=== PATIENT | female | born 1985 | race Caucasian/White ===

== ENCOUNTER 2018-05-21 09:17 | Day surgery (SDC) | payer OTHER, SELFPAY ==
[2018-05-19 11:27] VITALS: BMI 32.2
[2018-05-21] VITALS (9 sets, daily range): BP systolic 107–149; BP diastolic 62–93; PULSE 64–127; RESP 10–20; TEMP 36.3–36.9; O2SAT 92–100; BMI 32.2
--- NOTE | 2018-05-21 | DI.RAD.S_ITS ---
PROCEDURE: XR KNEE RT 1TO2V INDICATIONS: RIGHT ACL REPAIR TECHNIQUE: Single frontal view of the knee were acquired. COMPARISON: None. FINDINGS: Bones: No fractures or dislocations. No suspicious bony lesions. Postsurgical changes consistent with ACL reconstruction. Soft tissues: No joint effusion. No suspicious soft tissue calcifications. IMPRESSION: Limited evaluation after surgery, presumed ACL reconstruction. Single frontal view obtained. Dictated by: Joe Jefferson M.D. on 05/21/2018 at 18:31 Approved by: Joe Jefferson M.D. on 05/21/2018 at 18:32
[2018-05-21] MEDS: LACTATED RINGERS 1,000 ML 42 ML IV (11:51)
--- NOTE | 2018-05-21 13:43 | PM.PREOP ---
Pre-operative Note Interval Note Pre-op Check: Yes History & Physical Reviewed by Physician and Yes Exam Performed Changes: No
--- NOTE | 2018-05-21 14:01 | P.OP_ITS ---
Operative Date/Time/Diagnoses Date of procedure: 05/21/18 Time of procedure: 12:13 Pre-op diagnosis: Left anterior cruciate ligament injury Left medial meniscus tear Post-op diagnosis: same Procedure & Clinicians Procedure: Left anterior cruciate ligament reconstruction with patellar tendon autograft Left medial meniscus partial removal Same procedure as scheduled: Yes Indications: This is a 33-year-old female who sustained an ACL tear 4 years ago while playing basketball. Since that time she has had some instability. She also reports that 2 years ago she sustained an additional injury to the knee resulting screw shooting pain over the medial aspect and inability to straight. For the last 2 years she continues to have instability and has modified her activities she does not do cutting sports. She also has intermittent medial- sided knee pain and mechanical symptoms. Physical exam and imaging was consistent with an ACL tear and a large bucket-handle tear of the medial meniscus. The risks, benefits, alternatives to surgery were discussed. Risks include pain bleeding infection damage to nearby structures lack of symptom relief need for further procedures implant complications and graft rupture. We discussed the potential use of allograft tissue if her autograft tissue is inadequate. A written consent was signed. Surgeon: Carlos Cadet Licensed Appraiser: Mine Alicia Click Yes if Unassisted: No Anesthesia Type: General and Local Operative Notes Findings: Examination under anesthesia shows range of motion from 0-130 degrees. Genaro's is 2B. Pivot shift is abnormal. Stable to varus and valgus stressing at 0 and 30?. Stable to dial at 30 and 90?. Diagnostic arthroscopy showed the patellofemoral joint to be intact. The medial and lateral gutters had no loose bodies. The medial hemijoint had a large bucket-handle meniscus tear that appeared chronic and displaced into the notch. It could not be reduced into its anatomic position and it was debrided back to stable bases. Medial femoral condyle showed some linear fissuring but was otherwise intact. Medial tibial plateau was intact. PCL intact ACL was torn with the few fibers scarred to the PCL. The lateral hemijoint was intact with normal femoral and tibial cartilage and a normal lateral meniscus to include the the root. Closure Type: primary Specimen(s): none sent Implants & Drains: Arthrex bone patellar tendon bone tightrope Arthrex metal interference screw on the tibia Estimated Blood Loss (mL): 20 Blood products transfused: none Tourniquet time (min): 121 Procedure in detail: The patient was met in the preoperative hold area the day of the procedure and the operative extremity was signed. Consent was verified. She desired to proceed. She was brought to the operating room and surrendered to anesthesia. Once general anesthesia was obtained she was placed in supine position all bony prominences well padded. Examination under anesthesia was performed and the findings can be found above. She was then prepped and draped in the standard sterile fashion. Surgical time-out was held to confirm the patient procedure, identity, allergies, laterality, images. All were in agreement we proceeded. An Esmarch was used to exsanguinate the limb and tourniquet was elevated 250 mm of mercury. An 8 cm incision was made just medial to midline over the anterior knee and sharp dissection was carried down through the bursa to the paratenon. Full-thickness skin flaps were obtained. I then split the paratenon midline and dissected from the patellar tendon. I then measured the patellar tendon at 27mm with a plan to take the central 9mm. Fifteen blade was used to make a full -thickness cut through the patellar tendon at the appropriate locations. I then measured at 20 mm bone block on patella and a 30 mm bone block off the tibia. The corners were drilled with 2mm drill. The sagittal saw was used to create a triangular bone block from the patella and a trapezoidal bone block from the tibia. The fat pad was then dissected from the posterior aspect and the graft was brought to the back table for preparation. Following preparation a single drill hole was placed in the patellar bone block and 2 holes were placed in the tibial bone block. femoral bone block measured 8.5mm x 20mm and the tibial bone block measured 9mm x 30mm. Total length was 95mm. A standard diagnostic arthroscopy was then performed through the prior skin incision but making separate capsular incisions in the anterolateral and anteromedial location. The findings of the diagnostic arthroscopy can be found above. Because the medial meniscus was chronic appearing and irreducible I debrided it with a combination of biters and sucker shaver. I then assessed the anterior cruciate ligament scar tissue and debrided with a combination of sucker shaver and a radiofrequency ablation Wand. I removed all tissue off the lateral cortex back to the posterior wall. I then brought in the tibial guide set at 55? and placed it on the lateral border of the medial tibial eminence in line with the posterior aspect of the anterior horn of the lateral meniscus and 7 mm anterior to the PCL. A guidewire was then placed. The guidewire was then secured with a Haylie and a 9mm tibial tunnel was created from outside in. I then debrided tissue from the external tibial edge of the tunnel as well as internal to ensure easy passage of the bone block. I used a probe and measured the tibial tunnel to be 40mm I then placed the femoral guide into the joint and marked an incision site on the lateral femur. A 2 cm incision was made over the lateral femur through the ITB band and down to bone. The bullet was then passed through the ITB incision and onto the bone. The lateral femur measured 40mm total. I calculated a 25mm femoral tunnel by subtracting the 40mm tibial tunnel and 30mm intra-articular distance from the 95mm graft. I then drilled the appropriate sized flip cutter ensuring that I would have a 2 mm back wall and stay off of the distal articular margin. The flip cutter was then flipped and I scored the lateral wall. Satisfied that I was in a good position I then drilled 25mm into the femur and removed the flip cutter. Bony debris was removed utilizing the sucker shaver. A fiber stick was used and a passing stitch was placed out of the tibial tunnel. The graft was then marked with the appropriate lateral femoral depth and femoral tunnel depth. I then passed the bone block for the femur into the notch and grasped with a Haylie I then rearranged the orientation of the bone block to be in line with the femoral tunnel and passed into the femoral tunnel without difficulty. The BTB tightrope button was seen out of the skin and I guided it down through the incision in the ITB band onto the lateral femur under direct visualization while pulling excess suture and tightening the mechanism. I then cycled the knee 20 times while pulling tension on the graft. A large bump was then placed posterior to the distal femur and a posterior drawer was applied to the proximal tibia. I pulled full tension on the graft and placed the guidewire and 8mm screw in the appropriate position. Excellent tension and purchase was obtained. Genaro's was 1A. Pivot shift had been restored. A fluoroscopic image showed the button on the lateral femur and the implants and tunnels in good position I then irrigated all the wounds copiously and placed excess bone from the harvest into the bone defects. demineralized bone matrix was placed to fill the remaining void. IT band was closed with 0 Vicryl, the lateral dermis was closed with 2 O Vicryl, Monocryl was placed in the skin. The paratenon was reapproximated with a running Vicryl. The dermis was closed with 2 O Vicryl the skin was closed with a running Monocryl. 0.25% Marcaine was placed about all wounds and a sterile dressing was applied. The patient was awakened and transferred to the recovery room. Complications: none Condition: stable Disposition: same day surgery Plan for aftercare: Non weight-bearing with knee locked full extension for 2 weeks. She should perform straight leg raises and patellar mobilization during this time. After 2 weeks she will be weight-bearing as tolerated with the knee in full extension and will have on limited range of motion. At 6 weeks she can remove the brace. Gradual strengthening and range of motion will be performed. Return to run is anticipated at 4 months and return to dynamic activities 6 months. We will utilize functional milestones to advance her rehab.
[2018-05-21] MEDS: CEFAZOLIN 2 GM/100 ML FROZ.PIGGY IV (14:47)
--- NOTE | 2018-05-21 14:57 | SUR.OPER ---
Addendum entered by Triny Gomez R.N. 05/21/18 14:58: lateral brace on operable thigh. Original Note: Supine on padded OR bed, head on pillow, arms secured on padded arm boards at <90 degrees abduction, legs uncrossed, safety belt at thigh, tape over blanket over lower legs.
[2018-05-21] MEDS: BUPIVACAINE 0.25% (PF) VIAL 30 ML INJ (15:20)
[2018-05-21] MEDS: SODIUM CHLORIDE IRRIG SOLUTION 3,000 ML, EPINEPHrine 1 MG IRR (15:20)
[2018-05-21] MEDS: fentaNYL 100 MCG/2 ML INJ 50 MCG IV (17:39)
--- NOTE | 2018-05-21 17:51 | SUR.PHASEI ---
anesthesia notified of tachycardia. provider aware hr remains 115-125. pt denies pain and states she has baseline anxiety and is concerned about pain she will be in. Coached patient through breathing. No new orders at this time.
[2018-05-21] MEDS: ONDANSETRON 4 MG/2 ML INJ IV (18:06)
[2018-05-21] MEDS: OXYCODONE/ACETAMINOPHEN 5/325 TABLET 1 TAB PO (18:08)
--- NOTE | 2018-05-21 18:10 | SUR.PHASEII ---
patient up to bathroom with reports of nausea. improved with wet towel to forehead and zofran.
--- NOTE | 2018-05-21 18:52 | SUR.PHASEII ---
Anesthesia aware of hr greater than 100 upon discharge
== END 2018-05-21 18:28 | disposition home or self-care (01) ==
PROVIDERS: PCP Physician Assistant; Visit Provider Orthopaedic Surgery
PROC: (CPT 29888; principal; 2018-05-21 12:45)
PROC: (CPT 29870; 2018-05-21 12:45)
DX: M23.8X2 Other internal derangements of left knee (principal); S83.212A Bucket-handle tear of medial meniscus, current injury, left knee, initial encounter; F17.210 Nicotine dependence, cigarettes, uncomplicated; Y93.67 Activity, basketball
CPT/HCPCS: 29888; 29881; 73560; 76000; J0171; J0690; J1100; J1170; J2405; J2704; J3010